=== PATIENT | female | born 1980 | race Two or more races ===

== ENCOUNTER 2019-02-04 18:32 | Emergency (ER) | payer OTHER ==
[~2019-02-04] VITALS: Ht 172.7 cm; Wt 61.2 kg
[2019-02-04] MEDS ORDERED: PROAIR HFA8.5 GM (18:51)
[2019-02-04] MEDS ORDERED: SINGULAIR10 MG (18:51)
[2019-02-04] MEDS ORDERED: PROPRANOLOL HCL20 MG (18:51)
[2019-02-04] MEDS ORDERED: LEVALBUTER1.25 MG/3 IH (21:55)
[2019-02-04] MEDS ORDERED: BUDESONIDE0.5 MG/2 M IH (21:55)
[2019-02-04] MEDS ORDERED: MUCINEX DM ER1 EAC1 PO (21:55)
[2019-02-04] MEDS ORDERED: TESSALON PERLE100 M1 PO (21:55)
[2019-02-04] MEDS ORDERED: MEDROLPACK PO (21:55)
[2019-02-04] MEDS ORDERED: ZITHROMAX500 MG PO (21:55)
== END 2019-02-04 22:06 | disposition home or self-care (01) ==
LOC: ER 18:32
DX: B96.0 Mycoplasma pneumoniae [M. pneumoniae] as the cause of diseases classified elsewhere (principal); J04.0 Acute laryngitis; J06.9 Acute upper respiratory infection, unspecified

== ENCOUNTER 2019-04-18 20:49 | Emergency (ER) | payer OTHER ==
[~2019-04-18] VITALS: Ht 172.7 cm; Wt 61.2 kg
[~2019-04-18 20:49] MED LIST: BUDESONIDE0.5 MG/2 M IH; LEVALBUTER1.25 MG/3 IH; MEDROLPACK PO; MUCINEX DM ER1 EAC1 PO; PROAIR HFA8.5 GM; PROPRANOLOL HCL20 MG; SINGULAIR10 MG; TESSALON PERLE100 M1 PO; ZITHROMAX500 MG PO
[2019-04-19] MEDS ORDERED: BUDESONIDE0.5 MG/2 M IH (01:38)
[2019-04-19] MEDS ORDERED: TESSALON PERLE100 M1 PO (01:38)
[2019-04-19] MEDS ORDERED: MEDROLPACK PO (01:38)
== END 2019-04-19 | disposition home or self-care (01) ==
LOC: ER 20:49
DX: J45.998 Other asthma (principal)